=== PATIENT | male | born 1955 | race Caucasian/White ===

== ENCOUNTER 2022-07-02 20:30 | Emergency (ER) | payer OTHER ==
[2022-07-02 20:57] VITALS: TEMP 97.5; BMI 24.3
[2022-07-02 22:14] LABS: BASO % 1.2 % (0-2.0); EOS % 5.1 % (0-4.5); HEMOGLOBIN 12.7 GM/dL (11.7-16.9); LYMPH % 36.3 % (8-40); MCH 35.7 pg (25.7-33.7); MCHC 34.3 g/dl (32.0-35.9); MEAN CELL VOLUME 104.2 fl (80-96); MEAN PLT VOLUME 10.5 fl (7.5-11.1); MONO % 14.9 % (3.8-10.2); NEUT % 42.5 % (42.8-82.8); PLATELET COUNT 74 10^3/uL (134-434); RBC 3.55 M/mm3 (4.00-5.60); RDW 15.6 % (11.9-15.9); WHITE BLOOD COUNT 5.2 K/mm3 (4.0-10.0)
[2022-07-02 22:22] LABS: INR 1.07 (0.83-1.09); PROTHROMBIN TIME (PATIENT) 12.3 SEC (9.7-13.0)
[2022-07-02 22:25] LABS: ACTIVATED PTT 35.7 SECONDS (25.2-36.5)
[2022-07-02 22:26] LABS: VENOUS BASE EXCESS -3.3 mmol/L (-2-2); VENOUS O2 SATURATION 71.9 % (70-80); VENOUS PCO2 33.5 mmHg (38-52); VENOUS PH 7.408 (7.310-7.410)
[2022-07-02 22:34] LABS: ALBUMIN 1.3 g/dl (3.4-5.0)
[2022-07-02 22:35] LABS: BLOOD UREA NITROGEN 25.9 mg/dL (7-18)
[2022-07-02 22:38] LABS: CREATININE 1.7 mg/dL (0.55-1.3)
[2022-07-02 22:39] LABS: TOT PROT 4.9 g/dl (6.4-8.2)
[2022-07-02 22:40] LABS: BILIRUBIN,TOTAL 0.7 mg/dL (0.2-1)
[2022-07-02 22:42] LABS: EPI CELLS 11 /uL (0-25.1); HYALINE CASTS 3 /uL (0-3.1); URINE APPEARANCE CLEAR; URINE BACTERIA 13 /uL (0-1359); URINE BILIRUBIN NEGATIVE (NEGATIVE); URINE COLOR YELLOW; URINE GLUCOSE (UA) NEGATIVE (NEGATIVE); URINE KETONE NEGATIVE (NEGATIVE); URINE LEUK ESTERASE NEGATIVE (NEGATIVE); URINE NITRITE NEGATIVE (NEGATIVE); URINE PROTEIN 3+ (NEGATIVE); URINE WBC 8 /uL (0-25.8)
[2022-07-02] MEDS ORDERED: PIPERACILLIN/TAZOB 2.25 GM 2.25 GM/50 ML BAG IVPB ONE (22:57)
[2022-07-02] MEDS ORDERED: HEPARIN NA (PORCINE) 5,000 UNITS/ML 1ML VIAL ONE (22:57)
[2022-07-02] MEDS ORDERED: SODIUM CHLORIDE 500 ML IV STA (23:16)
[2022-07-02] MEDS ORDERED: LACTULOSE 20 GM/30 ML UDC (FOR ORAL USE ONLY) PO ONE (23:17)
[2022-07-02] MEDS ORDERED: FUROSEMIDE 40 MG/4 ML INJECTABLE VIAL IVPUSH ONE (23:40)
[2022-07-02] MEDS ORDERED: FUROSEMIDE 40 MG/4 ML INJECTABLE VIAL ONE (23:52)
[2022-07-02] MEDS ORDERED: LACTULOSE 20 GM/30 ML UDC (FOR ORAL USE ONLY) ONE (23:52)
[2022-07-03 04:38] VITALS: BP 176/76; PULSE 64; RESP 18
== END 2022-07-03 04:38 | disposition short-term general hospital (02) ==
LOC: JER 20:30
PROC: 3E033GC Introduction of Other Therapeutic Substance into Peripheral Vein, Percutaneous Approach (ICD-10-PCS; principal; 2022-07-02)
PROC: 3E0337Z Introduction of Electrolytic and Water Balance Substance into Peripheral Vein, Percutaneous Approach (ICD-10-PCS; 2022-07-02)
DX: K72.90 Hepatic failure, unspecified without coma (principal); N17.9 Acute kidney failure, unspecified
CPT/HCPCS: 36415; 70450-TC; 71045-TC-FY; 80053; 81003; 82140; 82803; 82962; 85025; 85610; 85730; 86850; 86900; 86901; 87086; 93005; 93010; 96361; 96374; 99285-25; C9803-CS; U0003; U0005

== ENCOUNTER 2024-02-07 06:30 | Inpatient (IN) | payer OTHER ==
[2024-02-07] MEDS: morphine CARPU-JECT 2 MG/1 ML DISP.SYRIN IVPUSH ONE (08:36)
[2024-02-07] MEDS ORDERED: ACETAMINOPHEN INJECTION 100 ML IVPB ONE ×2 (08:47→09:46)
[2024-02-07 08:50] LABS: VENOUS BASE EXCESS -8.7 mmol/L (-2-2); VENOUS O2 SATURATION 62.6 % (70-80); VENOUS PCO2 34.4 mmHg (38-52); VENOUS PH 7.302 (7.310-7.410)
[2024-02-07 09:03] LABS: HEMATOCRIT 33.8 % (35.4-49); HEMOGLOBIN 11.1 GM/dL (11.7-16.9); MCH 35.6 pg (25.7-33.7); MCHC 32.8 g/dl (32.0-35.9); MEAN CELL VOLUME 108.5 fl (80-96); PLATELET COUNT 78 10^3/uL (134-434); RBC 3.11 M/mm3 (4.00-5.60); RDW 17.6 % (11.9-15.9); WHITE BLOOD COUNT 3.6 K/mm3 (4.0-10.0)
[2024-02-07] MEDS: ACETAMINOPHEN 1000 MG/100 ML BAG IVPB ONE (10:11)
[2024-02-07 10:24] LABS: INR 1.13 (0.83-1.09); PROTHROMBIN TIME (PATIENT) 13.1 SEC (9.7-13.0)
[2024-02-07 10:26] LABS: ACTIVATED PTT 36.1 SECONDS (25.2-36.5)
[2024-02-07 10:45] LABS: ANISOCYTOSIS 0; MACROCYTOSIS 2+
[2024-02-07 10:46] LABS: POTASSIUM 5.7 mmol/L (3.5-5.1)
[2024-02-07 10:48] LABS: CALCIUM 7.6 mg/dL (8.5-10.1)
[2024-02-07 10:51] LABS: CREATININE 2.1 mg/dL (0.55-1.3)
[2024-02-07 10:53] LABS: BILIRUBIN,TOTAL 0.8 mg/dL (0.2-1); TOT PROT 4.4 g/dl (6.4-8.2)
[2024-02-07] MEDS ORDERED: VANCOMYCIN 1 GRAM (PRE-DOCKED) 1,000 MG/250 ML BAG IVPB ONE (11:03)
[2024-02-07] MEDS ORDERED: CEFEPIME 2 GM/100 ML BAG IVPB ONE (11:04)
[2024-02-07] MEDS: CEFEPIME HCL 1 GM VIAL (RESTRICTED TO ID) IVPB ONE (11:14)
[2024-02-07] MEDS: VANCOMYCIN 1,000 MG in DEXTROSE 5%-WATER - 250 ML IVPB ONE (11:14)
[2024-02-07] MEDS ORDERED: LACTULOSE 20 GM/30 ML UDC (FOR ORAL USE ONLY) ONE (13:03)
[2024-02-07] MEDS: LACTULOSE 20 GM/30 ML UDC (FOR ORAL USE ONLY) PO ONE (13:32)
[2024-02-07] MEDS: LACTATED RINGERS SOLUTION 1000 ML INFUS.BAG IV ONE (13:36)
[2024-02-07] MEDS ORDERED: MEROPENEM 1 GM in DEXTROSE 5%-WATER 100 ML IVPB SCH (16:00)
[2024-02-07] MEDS: MEROPENEM 1 GM in DEXTROSE 5%-WATER 100 ML IVPB SCH (16:16)
[2024-02-07] MEDS: LACTATED RINGERS SOLUTION 1,000 ML/1,000 ML INFUS.BAG IV SCH (16:57)
[2024-02-07] MEDS ORDERED: LACTATED RINGERS SOLUTION 1,000 ML/1,000 ML INFUS.BAG IV SCH (17:15)
[2024-02-07] MEDS: SODIUM ZIRCONIUM CYCLOSILICATE (LOKELMA) 5 GM PACKET PO SCH (18:02)
[2024-02-07 20:26] LABS: HIV INTERPRETATION NEGATIVE (NEGATIVE)
[2024-02-07] MEDS: LACTULOSE 20 GM/30 ML UDC (FOR ORAL USE ONLY) PO SCH (21:42)
[2024-02-07] MEDS: RIFAXIMIN 550 MG TABLET PO SCH (21:42)
[2024-02-07] MEDS: CHLORHEXIDINE GLUCONATE 4% CLEANSER FOR DECOLONIZATION TP SCH (21:43)
[2024-02-07] MEDS: MUPIROCIN 2% TOPICAL OINTMENT FOR DECOLONIZATION NS SCH (21:43)
[2024-02-07] MEDS: PANTOPRAZOLE SODIUM 40 MG VIAL IVPUSH ONE (21:43)
[2024-02-07 22:45] LABS: HEPATITIS B SURFACE AG CONFIRM CONFIRMED (NONREACTIVE)
[2024-02-08 07:32] LABS: HEMATOCRIT 33.2 % (35.4-49); HEMOGLOBIN 10.8 GM/dL (11.7-16.9); MCH 35.7 pg (25.7-33.7); MCHC 32.5 g/dl (32.0-35.9); MEAN CELL VOLUME 109.8 fl (80-96); MEAN PLT VOLUME 11.5 fl (7.5-11.1); PLATELET COUNT 38 10^3/uL (134-434); RBC 3.02 M/mm3 (4.00-5.60); RDW 16.7 % (11.9-15.9); WHITE BLOOD COUNT 13.8 K/mm3 (4.0-10.0)
[2024-02-08 07:34] LABS: INR 1.25 (0.83-1.09); PROTHROMBIN TIME (PATIENT) 14.5 SEC (9.7-13.0)
[2024-02-08 08:00] LABS: POTASSIUM 5.9 mmol/L (3.5-5.1)
[2024-02-08 08:07] LABS: CALCIUM 7.7 mg/dL (8.5-10.1)
[2024-02-08 08:08] LABS: ALBUMIN 0.8 g/dl (3.4-5.0); BLOOD UREA NITROGEN 42.6 mg/dL (7-18)
[2024-02-08 08:11] LABS: CREATININE 3.6 mg/dL (0.55-1.3); PHOSPHOROUS 3.9 mg/dL (2.5-4.9)
[2024-02-08 08:13] LABS: BILIRUBIN,TOTAL 0.5 mg/dL (0.2-1)
[2024-02-08] MEDS: TAMSULOSIN HCL 0.4 MG CAP PO SCH (09:07)
[2024-02-08] MEDS: SODIUM ZIRCONIUM CYCLOSILICATE (LOKELMA) 5 GM PACKET PO SCH (09:08)
[2024-02-08] MEDS: PANTOPRAZOLE SODIUM 40 MG VIAL IVPUSH SCH (09:19)
[2024-02-08 09:28] LABS: ANISOCYTOSIS 0; MACROCYTOSIS 2+
[2024-02-08] MEDS: VANCOMYCIN PREMIX 1.5 GM 1,500 MG/300 ML BAG IVPB ONE (10:09)
[2024-02-08 10:36] LABS: EPI CELLS 29 /uL (0-25.1); HYALINE CASTS 20 /uL (0-3.1); URINE APPEARANCE Cloudy; URINE BACTERIA 72 /uL (0-1359); URINE BILIRUBIN Small (NEGATIVE); URINE COLOR DK YELLOW; URINE GLUCOSE (UA) Negative (NEGATIVE); URINE KETONE 15 mg/dl (NEGATIVE); URINE LEUK ESTERASE Negative (NEGATIVE); URINE NITRITE Negative (NEGATIVE); URINE PROTEIN 100 (NEGATIVE)
[2024-02-08 10:50] LABS: URINE RBC 241.6 /uL (0-23.9); URINE WBC 89.9 /uL (0-25.8)
[2024-02-08] MEDS: FUROSEMIDE 40 MG/4 ML INJECTABLE VIAL IVPUSH ONE ×2 (10:53→20:45)
[2024-02-08 11:02] LABS: YEAST NONE SEEN (NEGATIVE)
[2024-02-08] MEDS: ALBUMIN HUMAN 25% 100 ML VIAL IV ONE ×3 (11:44→20:00)
[2024-02-08] MEDS: CEFTRIAXONE 2 GM in DEXTROSE 5%-WATER 100 ML IVPB SCH (11:44)
[2024-02-08 12:07] LABS: HEMATOCRIT 30.8 % (35.4-49); HEMOGLOBIN 9.8 GM/dL (11.7-16.9); MCH 35.1 pg (25.7-33.7); MCHC 31.7 g/dl (32.0-35.9); MEAN CELL VOLUME 110.9 fl (80-96); MEAN PLT VOLUME 11.5 fl (7.5-11.1); PLATELET COUNT 38 10^3/uL (134-434); RBC 2.78 M/mm3 (4.00-5.60); RDW 17.1 % (11.9-15.9); WHITE BLOOD COUNT 14.7 K/mm3 (4.0-10.0)
[2024-02-08 15:22] LABS: RETICULOCYTES 0.85 % (0.5-1.5)
[2024-02-08] MEDS: MIDODRINE HCL 5 MG TABLET PO SCH (17:00)
[2024-02-08] MEDS ORDERED: MIDODRINE HCL 5 MG TABLET PO SCH (18:00)
[2024-02-08] MEDS ORDERED: FUROSEMIDE 40 MG/4 ML INJECTABLE VIAL ONE (20:46)
[2024-02-08] MEDS: SODIUM ZIRCONIUM CYCLOSILICATE (LOKELMA) 5 GM PACKET PO ONE (21:16)
[2024-02-09 07:21] LABS: HEMATOCRIT 27.9 % (35.4-49); HEMOGLOBIN 9.2 GM/dL (11.7-16.9); MCH 35.5 pg (25.7-33.7); MCHC 32.9 g/dl (32.0-35.9); MEAN CELL VOLUME 107.8 fl (80-96); RBC 2.59 M/mm3 (4.00-5.60); RDW 16.2 % (11.9-15.9); WHITE BLOOD COUNT 20.9 K/mm3 (4.0-10.0)
[2024-02-09 07:35] LABS: POTASSIUM 5.8 mmol/L (3.5-5.1)
[2024-02-09 07:50] LABS: CALCIUM 7.4 mg/dL (8.5-10.1)
[2024-02-09 07:51] LABS: BLOOD UREA NITROGEN 58.8 mg/dL (7-18)
[2024-02-09 07:54] LABS: TOT PROT 4.1 g/dl (6.4-8.2)
[2024-02-09 07:57] LABS: BILIRUBIN,TOTAL 0.8 mg/dL (0.2-1)
[2024-02-09 08:21] LABS: ALBUMIN 1.8 g/dl (3.4-5.0)
[2024-02-09 08:56] LABS: ANISOCYTOSIS 2+; MACROCYTOSIS 2+
[2024-02-09] MEDS: SODIUM ZIRCONIUM CYCLOSILICATE (LOKELMA) 5 GM PACKET PO ONE (09:38)
[2024-02-09] MEDS: SODIUM BICARBONATE 650 MG TABLET PO SCH (09:38)
[2024-02-09 09:42] LABS: PLATELET COUNT 34 10^3/uL (134-434)
[2024-02-09] MEDS: EMTRICITABINE 200MG/TENOFOVIR 300MG PO SCH (13:14)
[2024-02-09] MEDS: FUROSEMIDE 100 MG/10 ML INJECTABLE VIAL IVPB ONE (13:14)
[2024-02-09] MEDS: ALBUMIN HUMAN 25% 12.5 GM/50 ML VIAL IV SCH (14:40)
[2024-02-09] MEDS: FUROSEMIDE 100 MG/10 ML INJECTABLE VIAL IVPB SCH (16:46)
[2024-02-09 17:40] LABS: EPI CELLS 5 /uL (0-25.1); HYALINE CASTS 2 /uL (0-3.1); URINE APPEARANCE CLEAR; URINE BACTERIA 7 /uL (0-1359); URINE BILIRUBIN NEGATIVE (NEGATIVE); URINE COLOR YELLOW; URINE GLUCOSE (UA) NEGATIVE (NEGATIVE); URINE KETONE NEGATIVE (NEGATIVE); URINE LEUK ESTERASE NEGATIVE (NEGATIVE); URINE NITRITE NEGATIVE (NEGATIVE); URINE PROTEIN 2+ (NEGATIVE); URINE RBC 43 /uL (0-23.9); URINE UROBILINOGEN 0.2 mg/dL (0.2-1.0); URINE WBC 9 /uL (0-25.8)
[2024-02-09] MEDS: SODIUM ZIRCONIUM CYCLOSILICATE (LOKELMA) 5 GM PACKET PO SCH (21:39)
[2024-02-09] MEDS: ARTIFICIAL TEARS OPHTHALMIC DROPS OU SCH (21:39)
[2024-02-10 07:19] LABS: HEMATOCRIT 24.4 % (35.4-49); MCH 34.9 pg (25.7-33.7); MCHC 32.9 g/dl (32.0-35.9); MEAN PLT VOLUME 12.4 fl (7.5-11.1); RDW 15.7 % (11.9-15.9)
[2024-02-10 07:30] LABS: POTASSIUM 4.1 mmol/L (3.5-5.1)
[2024-02-10 07:34] LABS: CALCIUM 7.5 mg/dL (8.5-10.1); MAGNESIUM 2.1 mg/dL (1.8-2.4)
[2024-02-10 07:37] LABS: CREATININE 3.7 mg/dL (0.55-1.3); PHOSPHOROUS 4.3 mg/dL (2.5-4.9)
[2024-02-10 07:39] LABS: BILIRUBIN,TOTAL 1.2 mg/dL (0.2-1)
[2024-02-10 07:53] LABS: PLATELET COUNT 33 10^3/uL (134-434)
[2024-02-10 08:49] LABS: ANISOCYTOSIS 0; MACROCYTOSIS 1+
[2024-02-10] MEDS: ALBUMIN HUMAN 25% 100 ML VIAL IV SCH (12:24)
[2024-02-10] MEDS: MIDODRINE HCL 5 MG TABLET PO SCH (13:06)
[2024-02-11 07:09] LABS: INR 1.64 (0.83-1.09); PROTHROMBIN TIME (PATIENT) 18.9 SEC (9.7-13.0)
[2024-02-11 07:15] LABS: HEMATOCRIT 23.7 % (35.4-49); MCHC 33.7 g/dl (32.0-35.9); MEAN CELL VOLUME 103.7 fl (80-96); MEAN PLT VOLUME 11.9 fl (7.5-11.1); RBC 2.29 M/mm3 (4.00-5.60); RDW 15.6 % (11.9-15.9); WHITE BLOOD COUNT 12.2 K/mm3 (4.0-10.0)
[2024-02-11 07:34] LABS: POTASSIUM 3.6 mmol/L (3.5-5.1)
[2024-02-11 07:43] LABS: BLOOD UREA NITROGEN 76.3 mg/dL (7-18); MAGNESIUM 2.2 mg/dL (1.8-2.4)
[2024-02-11 07:45] LABS: CREATININE 3.3 mg/dL (0.55-1.3); PHOSPHOROUS 3.8 mg/dL (2.5-4.9)
[2024-02-11 07:47] LABS: BILIRUBIN,TOTAL 2.2 mg/dL (0.2-1); TOT PROT 4.5 g/dl (6.4-8.2)
[2024-02-11 07:51] LABS: ALBUMIN 2.7 g/dl (3.4-5.0)
[2024-02-11 09:16] LABS: ANISOCYTOSIS 0; MACROCYTOSIS 1+; OVALOCYTE 1+; TARGET CELLS 1+
[2024-02-11 09:20] LABS: PLATELET COUNT 36 10^3/uL (134-434)
[2024-02-11 14:55] LABS: BILIRUBIN,DIRECT 1.3 mg/dL (0.0-0.2)
[2024-02-11] MEDS: ZINC OXIDE 20% TOPICAL OINTMENT 30 GM TUBE TP SCH (17:25)
[2024-02-11] MEDS: MAG HYDROX/ALH/SMC/DPHA/LIDO 240 ML MOUTHWASH MM SCH (21:42)
[2024-02-12] MEDS: ACETAMINOPHEN 1000 MG/100 ML BAG IVPB ONE ×2 (05:20→23:07)
[2024-02-12 07:16] LABS: HEMATOCRIT 24.7 % (35.4-49); HEMOGLOBIN 8.2 GM/dL (11.7-16.9); MCH 35.3 pg (25.7-33.7); MCHC 33.3 g/dl (32.0-35.9); MEAN CELL VOLUME 106.1 fl (80-96); MEAN PLT VOLUME 11.5 fl (7.5-11.1); PLATELET COUNT 37 10^3/uL (134-434); RBC 2.33 M/mm3 (4.00-5.60); RDW 15.4 % (11.9-15.9)
[2024-02-12 08:11] LABS: POTASSIUM 3.2 mmol/L (3.5-5.1)
[2024-02-12 08:14] LABS: CALCIUM 7.7 mg/dL (8.5-10.1)
[2024-02-12 08:15] LABS: ALBUMIN 2.2 g/dl (3.4-5.0)
[2024-02-12 08:18] LABS: CREATININE 3.1 mg/dL (0.55-1.3)
[2024-02-12 08:19] LABS: BILIRUBIN,TOTAL 3.2 mg/dL (0.2-1); TOT PROT 4.1 g/dl (6.4-8.2)
[2024-02-12 10:20] LABS: ANISOCYTOSIS 0; MACROCYTOSIS 2+; OVALOCYTE 1+; TARGET CELLS 1+
[2024-02-12] MEDS: FUROSEMIDE 100 MG/10 ML INJECTABLE VIAL IVPB SCH (14:05)
[2024-02-13] MEDS: valACYclovir HCL 500 MG TABLET (FP) PO ONE (01:35)
[2024-02-13 11:18] LABS: HEMOGLOBIN 9.1 GM/dL (11.7-16.9); MCH 35.5 pg (25.7-33.7); MCHC 33.9 g/dl (32.0-35.9); MEAN CELL VOLUME 104.7 fl (80-96); MEAN PLT VOLUME 11.1 fl (7.5-11.1); PLATELET COUNT 37 10^3/uL (134-434); RBC 2.58 M/mm3 (4.00-5.60); RDW 15.6 % (11.9-15.9); WHITE BLOOD COUNT 10.9 K/mm3 (4.0-10.0)
[2024-02-13 11:19] LABS: MAGNESIUM 2.1 mg/dL (1.8-2.4)
[2024-02-13 11:23] LABS: PHOSPHOROUS 3.5 mg/dL (2.5-4.9)
[2024-02-13 11:48] LABS: CALCIUM 7.7 mg/dL (8.5-10.1)
[2024-02-13 11:49] LABS: ALBUMIN 2.2 g/dl (3.4-5.0); BLOOD UREA NITROGEN 79.4 mg/dL (7-18)
[2024-02-13 11:53] LABS: BILIRUBIN,TOTAL 3.2 mg/dL (0.2-1); TOT PROT 4.3 g/dl (6.4-8.2)
[2024-02-13] MEDS ORDERED: IOHEXOL (OMNIPAQUE PO) 12 MG/ML - 500 ML BOTTLE PO ONE ×2 (12:01→12:21)
[2024-02-13] MEDS: POTASSIUM CHLORIDE ORAL LIQUID 20 MEQ/15 ML PO ONE (15:58)
[2024-02-13] MEDS: KCL 10 MEQ IVPB 10 MEQ/100 ML INFUS.BAG IVPB SCH (15:59)
[2024-02-13] MEDS: ALBUMIN HUMAN 25% 100 ML VIAL IV SCH (18:31)
[2024-02-13 19:06] LABS: ANTIGLOMERULAR BASEMENT MEN.AB <0.2 units (0.0-0.9)
[2024-02-13] MEDS: ACETAMINOPHEN 1000 MG/100 ML BAG IVPB ONE (21:22)
[2024-02-14] MEDS: POTASSIUM CHLORIDE ORAL LIQUID 20 MEQ/15 ML PO ONE (08:38)
[2024-02-14] MEDS ORDERED: LACTULOSE 20 GM/30 ML UDC (FOR ORAL USE ONLY) PO SCH (10:00)
[2024-02-14 11:33] LABS: HEMOGLOBIN 8.6 GM/dL (11.7-16.9); MCH 36.2 pg (25.7-33.7); MCHC 34.5 g/dl (32.0-35.9); MEAN CELL VOLUME 104.7 fl (80-96); MEAN PLT VOLUME 9.8 fl (7.5-11.1); PLATELET COUNT 38 10^3/uL (134-434); RBC 2.39 M/mm3 (4.00-5.60); RDW 15.1 % (11.9-15.9); WHITE BLOOD COUNT 10.8 K/mm3 (4.0-10.0)
[2024-02-14] MEDS: POTASSIUM PHOSPHATE 30 MM in DEXTROSE 5%-WATER - 500 ML IVPB ONE (11:35)
[2024-02-14 11:53] LABS: ANISOCYTOSIS 2+; MACROCYTOSIS 2+; TARGET CELLS 2+
[2024-02-14 12:11] LABS: POTASSIUM 3.7 mmol/L (3.5-5.1)
[2024-02-14 12:12] VITALS: BMI 30.2
[2024-02-14 12:13] LABS: BLOOD UREA NITROGEN 76.6 mg/dL (7-18); CALCIUM 7.8 mg/dL (8.5-10.1)
[2024-02-14 12:14] LABS: ALBUMIN 2.6 g/dl (3.4-5.0); MAGNESIUM 1.8 mg/dL (1.8-2.4)
[2024-02-14 12:16] LABS: CREATININE 2.7 mg/dL (0.55-1.3)
[2024-02-14 12:18] LABS: BILIRUBIN,TOTAL 2.8 mg/dL (0.2-1); TOT PROT 4.4 g/dl (6.4-8.2)
[2024-02-14] MEDS: MIDODRINE HCL 5 MG TABLET PO SCH (14:04)
[2024-02-14] MEDS: FUROSEMIDE 40 MG/4 ML INJECTABLE VIAL IVPB SCH (14:08)
[2024-02-14 16:08] LABS: C-ANCA <1:20 titer (Neg:<1:20)
[2024-02-14] MEDS: MINERAL OIL/PET HY-PHL TOPICAL OINTMENT 454 GM JAR TP SCH (17:46)
[2024-02-14] MEDS: ALBUMIN HUMAN 25% 100 ML VIAL IV SCH (17:47)
[2024-02-14] MEDS: RIFAXIMIN 550 MG TABLET PO SCH (21:27)
[2024-02-14] MEDS: ARTIFICIAL TEARS OPHTHALMIC DROPS OU SCH (21:30)
[2024-02-14] MEDS: ZINC OXIDE 20% TOPICAL OINTMENT 30 GM TUBE TP SCH (21:31)
[2024-02-14] MEDS: NYSTATIN POWDER 100,000 UNITS/GM - 30 GM TOPICAL POWDER TP SCH (21:31)
[2024-02-15 08:29] LABS: HEMATOCRIT 23.2 % (35.4-49); HEMOGLOBIN 7.9 GM/dL (11.7-16.9); MCH 35.7 pg (25.7-33.7); MCHC 34.3 g/dl (32.0-35.9); MEAN CELL VOLUME 104.2 fl (80-96); MEAN PLT VOLUME 11.7 fl (7.5-11.1); PLATELET COUNT 61 10^3/uL (134-434); RBC 2.22 M/mm3 (4.00-5.60); WHITE BLOOD COUNT 10.7 K/mm3 (4.0-10.0)
[2024-02-15 08:40] LABS: POTASSIUM 3.4 mmol/L (3.5-5.1)
[2024-02-15 08:47] LABS: CALCIUM 7.8 mg/dL (8.5-10.1)
[2024-02-15 08:48] LABS: ALBUMIN 2.8 g/dl (3.4-5.0); BLOOD UREA NITROGEN 72.5 mg/dL (7-18)
[2024-02-15 08:51] LABS: CREATININE 2.4 mg/dL (0.55-1.3)
[2024-02-15 08:52] LABS: BILIRUBIN,TOTAL 2.4 mg/dL (0.2-1)
[2024-02-15 08:53] LABS: TOT PROT 4.4 g/dl (6.4-8.2)
[2024-02-15 10:59] LABS: BILIRUBIN,DIRECT 1.3 mg/dL (0.0-0.2)
[2024-02-15] MEDS: LACTULOSE 20 GM/30 ML UDC (FOR ORAL USE ONLY) PO SCH (11:12)
[2024-02-15] MEDS: CEFTRIAXONE 2 GM in DEXTROSE 5%-WATER 100 ML IVPB SCH (11:13)
[2024-02-15] MEDS: POTASSIUM CHLORIDE ORAL LIQUID 20 MEQ/15 ML PO ONE (14:21)
[2024-02-15] MEDS: ALBUMIN HUMAN 25% 12.5 GM/50 ML VIAL IV SCH (14:21)
[2024-02-15] MEDS: FUROSEMIDE 40 MG/4 ML INJECTABLE VIAL IVPB SCH (14:22)
[2024-02-15] MEDS: MIDODRINE HCL 2.5 MG TABLET PO SCH (14:23)
[2024-02-15] MEDS: EMTRICITABINE 200MG/TENOFOVIR 300MG PO SCH (16:36)
[2024-02-16 08:36] LABS: HEMATOCRIT 23.2 % (35.4-49); MCH 36.3 pg (25.7-33.7); MCHC 34.7 g/dl (32.0-35.9); MEAN CELL VOLUME 104.6 fl (80-96); MEAN PLT VOLUME 10.9 fl (7.5-11.1); PLATELET COUNT 76 10^3/uL (134-434); RBC 2.22 M/mm3 (4.00-5.60); RDW 14.5 % (11.9-15.9); WHITE BLOOD COUNT 8.9 K/mm3 (4.0-10.0)
[2024-02-16 08:48] LABS: POTASSIUM 3.2 mmol/L (3.5-5.1)
[2024-02-16 08:51] LABS: ALBUMIN 2.6 g/dl (3.4-5.0); CALCIUM 7.7 mg/dL (8.5-10.1)
[2024-02-16 08:54] LABS: CREATININE 2.2 mg/dL (0.55-1.3)
[2024-02-16 08:56] LABS: BILIRUBIN,TOTAL 2.4 mg/dL (0.2-1); TOT PROT 4.4 g/dl (6.4-8.2)
[2024-02-16] MEDS: POTASSIUM CHLORIDE ORAL LIQUID 20 MEQ/15 ML PO SCH ×2 (17:21→22:12)
[2024-02-16] MEDS: TAMSULOSIN HCL 0.4 MG CAP PO SCH (22:12)
[2024-02-16] MEDS: LACTULOSE 20 GM/30 ML UDC (FOR ORAL USE ONLY) PO SCH (22:13)
[2024-02-17] MEDS: ACETAMINOPHEN 1000 MG/100 ML BAG IVPB ONE (06:29)
[2024-02-17 08:19] LABS: HEMATOCRIT 25.1 % (35.4-49); HEMOGLOBIN 8.5 GM/dL (11.7-16.9); MCH 36.1 pg (25.7-33.7); MCHC 34.1 g/dl (32.0-35.9); MEAN CELL VOLUME 105.7 fl (80-96); MEAN PLT VOLUME 10.8 fl (7.5-11.1); PLATELET COUNT 95 10^3/uL (134-434); RBC 2.37 M/mm3 (4.00-5.60); RDW 14.7 % (11.9-15.9); WHITE BLOOD COUNT 8.7 K/mm3 (4.0-10.0)
[2024-02-17 08:31] LABS: POTASSIUM 4.3 mmol/L (3.5-5.1)
[2024-02-17 08:36] LABS: ALBUMIN 2.4 g/dl (3.4-5.0); BLOOD UREA NITROGEN 63.1 mg/dL (7-18); CALCIUM 7.3 mg/dL (8.5-10.1)
[2024-02-17 08:40] LABS: BILIRUBIN,TOTAL 1.9 mg/dL (0.2-1); TOT PROT 4.5 g/dl (6.4-8.2)
[2024-02-17] MEDS: oxyCODONE HCL 5 MG TABLET PO ONE (12:34)
[2024-02-19] MEDS: FUROSEMIDE 40 MG/4 ML INJECTABLE VIAL IVPB SCH (05:54)
[2024-02-19 08:21] LABS: POTASSIUM 4.2 mmol/L (3.5-5.1)
[2024-02-19 08:42] LABS: BLOOD UREA NITROGEN 55.9 mg/dL (7-18); CALCIUM 7.5 mg/dL (8.5-10.1)
[2024-02-19 08:45] LABS: CREATININE 1.8 mg/dL (0.55-1.3)
[2024-02-19 08:47] LABS: BILIRUBIN,TOTAL 1.6 mg/dL (0.2-1); TOT PROT 4.3 g/dl (6.4-8.2)
[2024-02-19] MEDS: oxyCODONE HCL 5 MG TABLET PO PRN ×2 (11:16→11:35)
[2024-02-19] MEDS: ALBUMIN HUMAN 25% 100 ML VIAL IV SCH (14:43)
[2024-02-20 09:10] LABS: HEMATOCRIT 21.2 % (35.4-49); HEMOGLOBIN 7.4 GM/dL (11.7-16.9); MCH 36.8 pg (25.7-33.7); MCHC 34.8 g/dl (32.0-35.9); MEAN CELL VOLUME 105.5 fl (80-96); MEAN PLT VOLUME 10.7 fl (7.5-11.1); PLATELET COUNT 135 10^3/uL (134-434); RBC 2.01 M/mm3 (4.00-5.60); RDW 15.4 % (11.9-15.9); WHITE BLOOD COUNT 6.3 K/mm3 (4.0-10.0)
[2024-02-20 09:27] LABS: POTASSIUM 4.3 mmol/L (3.5-5.1)
[2024-02-20 09:33] LABS: CALCIUM 7.7 mg/dL (8.5-10.1)
[2024-02-20 09:34] LABS: ALBUMIN 2.3 g/dl (3.4-5.0); BLOOD UREA NITROGEN 55.6 mg/dL (7-18)
[2024-02-20 09:37] LABS: CREATININE 1.7 mg/dL (0.55-1.3)
[2024-02-20 09:38] LABS: BILIRUBIN,TOTAL 1.7 mg/dL (0.2-1); TOT PROT 4.5 g/dl (6.4-8.2)
[2024-02-20] MEDS: SPIRONOLACTONE 25 MG TABLET PO ONE (14:27)
[2024-02-21 07:52] LABS: BASO % 1.3 % (0-2.0); EOS % 2.8 % (0-4.5); HEMATOCRIT 21.7 % (35.4-49); HEMOGLOBIN 7.5 GM/dL (11.7-16.9); MCH 36.8 pg (25.7-33.7); MCHC 34.7 g/dl (32.0-35.9); MEAN CELL VOLUME 106.1 fl (80-96); MEAN PLT VOLUME 10.7 fl (7.5-11.1); MONO % 14.6 % (3.8-10.2); NEUT % 57.3 % (42.8-82.8); PLATELET COUNT 152 10^3/uL (134-434); RBC 2.04 M/mm3 (4.00-5.60); WHITE BLOOD COUNT 5.9 K/mm3 (4.0-10.0)
[2024-02-21 08:04] LABS: POTASSIUM 4.3 mmol/L (3.5-5.1)
[2024-02-21 08:17] LABS: ALBUMIN 2.2 g/dl (3.4-5.0); BLOOD UREA NITROGEN 55.7 mg/dL (7-18)
[2024-02-21 08:19] LABS: CALCIUM 7.3 mg/dL (8.5-10.1); CREATININE 1.8 mg/dL (0.55-1.3)
[2024-02-21 08:23] LABS: BILIRUBIN,TOTAL 1.4 mg/dL (0.2-1); TOT PROT 4.6 g/dl (6.4-8.2)
[2024-02-21 09:18] LABS: ANISOCYTOSIS 2+; MACROCYTOSIS 2+; TARGET CELLS 1+
[2024-02-21] MEDS: SPIRONOLACTONE 25 MG TABLET PO SCH (15:10)
[2024-02-22] MEDS: FUROSEMIDE 40 MG TABLET (FP) PO SCH (06:17)
[2024-02-22 14:36] VITALS: BP 134/73; PULSE 77; RESP 20; TEMP 98.1
== END 2024-02-22 17:02 | disposition home or self-care (01) | DRG 871 ==
LOC: JER 06:30 → JERBED 13:42 → JICU 15:30 → J4W 02-11 00:07 → J7W 02-14 09:49
PROVIDERS: ADMIT Internal Medicine; ATTEND Nurse Practitioner Family
DX: A40.1 Sepsis due to streptococcus, group B (principal); R65.21 Severe sepsis with septic shock; B18.1 Chronic viral hepatitis B without delta-agent; N17.9 Acute kidney failure, unspecified; R18.8 Other ascites; E87.5 Hyperkalemia; K70.30 Alcoholic cirrhosis of liver without ascites; D69.6 Thrombocytopenia, unspecified; R33.9 Retention of urine, unspecified; L89.95 Pressure ulcer of unspecified site, unstageable; N40.0 Benign prostatic hyperplasia without lower urinary tract symptoms; E88.09 Other disorders of plasma-protein metabolism, not elsewhere classified; I10 Essential (primary) hypertension; E87.6 Hypokalemia
CPT/HCPCS: 0241U-QW; 36415; 71045-TC-FY; 72192-TC; 74019-TC-FY; 74176-TC; 74177-TC; 76705-TC; 76775-TC; 76856-TC; 76870-TC; 80053; 81003; 82105; 82140; 82248; 82607; 82728; 82746; 82803; 83516; 83520; 83540; 83550; 83605; 83735; 83880; 84100; 84155; 84165; 84466; 85025; 85027; 85045; 85610; 85730; 86038; 86225; 86256; 86705; 86707; 86803; 87040; 87045; 87046; 87086; 87186; 87324; 87340; 87350; 87389; 87449; 87517; 87912; 93005; 93010; 93306-TC; 97116-GP; 97162-GP; 99291; G0480; J0131; P9047; Q9967